=== PATIENT | male | born 1945 | race Caucasian/White ===

== ENCOUNTER 2016-07-20 19:26 | Observation (INO) | payer BC ==
[2016-07-20] MEDS ORDERED: ACETAMINOPHEN 500 MG TAB PO ONE (19:32)
[2016-07-20] MEDS ORDERED: NS 2,000 ML IV ONE (19:43)
--- NOTE | 2016-07-20 19:43 | EDPHY ---
[id number] of breath HISTORY OF PRESENT ILLNESS: this patient is a 70-year-old male, presents emergency room by private vehicle for fever to 102.7 at home. Patient states that he developed cold overnight, began feeling generalized weakness, fatigue, cough, sometimes productive in nature with white sputum. He states he developed chills, rigors, muscle aches, joint pain and generalized weakness prior to arrival. T-max at home 102.7. Does tell me that he had the influenza shot as well as Pneumovax. He denies abdominal pain, chest pain, does endorse some shortness of breath. No urinary symptoms. Past Medical History: BPH, hyperlipidemia Past Surgical History: prostate surgery Social History: lives locally, denies drug use, tobacco use, alcohol Family History: noncontributory ROS REVIEW OF SYSTEMS: A comprehensive 10 point review of systems is otherwise negative aside from elements mentioned in the history of present illness. Exam Constitutional appears well nontoxic triage nursing summary reviewed, vital signs reviewed, awake/alert. ( vital sign reviewed hypotensive at triage, febrile) Eyes normal conjunctivae and sclera, EOMI, PERRLA. HENT normal inspection, atraumatic, moist mucus membranes, no epistaxis, neck supple/ no meningismus, no raccoon eyes. Respiratory clear to auscultation bilaterally, normal breath sounds, no respiratory distress, no wheezing. Cardiovascular rate normal, regular rhythm, no murmur, no edema, distal pulses normal. Gastrointestinal soft, non-tender, no rebound, no guarding, normal bowel sounds, no distension, no pulsatile mass. Genitourinary no CVA tenderness. Musculoskeletal no midline vertebral tenderness, full range of motion, no calf swelling, no tenderness of extremities, no meningismus, good pulses, neurovascularly intact. Skin pink, warm, & dry, no rash, skin atraumatic. Neurologic awake, alert and oriented x 3, AAOx3, moves all 4 extremities equally, motor intact, sensory intact, CN II-XII intact, normal cerebellar, normal vision, normal speech. Psychiatric normal mood/affect. Heme/Lymph/Immune no lymphadenopathy. Differential Diagnosis: includes but is not limited to in a particular order, sepsis, influenza, pneumonia, bacteremia, severe sepsis, dehydration Medical Decision Making: this patient is noted to be hypotensive and febrile at triage he will receive antipyretics, IV fluid bolus 2 L normal saline, will check a lactic acid, blood cultures, chest x-ray two view for pneumonia, blood work, IV fluid bolus and re-evaluate. Blood culture be pulled. Re-evaluation: EKG interpretation by me on record in Recommend system. Impression Time of EKG 1999 to this is sinus rhythm rate of 90, there is atrial premature complex present. No acute ischemia. 2200: This patient is influenza A positive. Do not appreciate a broncho pneumonia on his chest x-ray. Patient is receiving 2 L of fluid. His blood pressures been soft in 80s to 90s. He is feeling better. Fever control with antipyretics. I do feel given the patient's age, soft blood pressures 80s to 90 systolic and will admitted to the hospitalist for observation for hypotension /Influenza A. I did update his daughter at bedside who is a family medicine physician and at bedside patient agrees for admission. Source: Patient - Personal History Current Tetanus/Diphtheria Vaccine: Yes Current Tetanus Diphtheria and Acellular Pertussis (TDAP): Yes - Medical/Surgical History Hx Asthma: No Hx Chronic Respiratory Disease: No Hx Diabetes: No Hx Cardiac Disease: No Hx Renal Disease: No Hx Cirrhosis: No Hx Alcoholism: No Hx HIV/AIDS: No Hx Splenectomy or Spleen Trauma: No Other PMH: hypothyroid, high chol, pne - Social History Smoking Status: Never smoked Constitutional: Initial Vital Signs Temperature (C) 38.7 C H 07/20/16 19:29 Heart Rate 91 07/20/16 19:29 Respiratory Rate 16 07/20/16 19:29 Blood Pressure 92/62 L 07/20/16 19:29 O2 Sat (%) 94 07/20/16 19:29 O2 Delivery Mode Nasal Cannula O2 (L/minute) 2 Allergies/Adverse Reactions: No Known Allergies Allergy (Unverified 07/10/09 13:49) Home Medications: Medication Instructions Recorded Aspirin EC [Aspirin EC 81 mg (*)] 81 mg PO DAILY 07/20/16 Atorvastatin Calcium [Lipitor 10 10 mg PO DAILY 07/20/16 mg (*)] Finasteride [Proscar 5 MG (*)] 10 mg PO DAILY 07/20/16 Levothyroxine [Synthroid 100 mcg 100 mcg PO DAILY06 07/20/16 (*)] Oseltamivir Phosphate [Tamiflu 75 75 mg PO BIDMEAL #8 cap 07/21/16 mg (*)] Medical Decision Making - Data Points Laboratory Results: Laboratory Results 07/20/16 19:55 07/20/16 19:55 Microbiology Results: MICROBIOLOGY 07/20/16 19:44 Blood Blood Culture - Preliminary 07/20/16 20:15 Blood Blood Culture - Preliminary Medications Given: Discontinued Medications Acetaminophen (Tylenol) 1,000 mg PO EDNOW ONE Stop: 07/20/16 19:33 Last Admin: 07/20/16 19:34 Dose: 1,000 mg Acetaminophen (Tylenol) 500 - 1,000 mg PO Q6HRS PRN PRN Reason: Fever over 38.3, or mild pain Stop: 01/16/17 22:41 Last Admin: 07/21/16 06:10 Dose: 1,000 mg Aspirin Buffered (Aspirin Ec) 81 mg PO DAILY ANITA Stop: 01/17/17 08:59 Last Admin: 07/21/16 10:42 Dose: Not Given Atorvastatin Calcium (Lipitor) 10 mg PO DAILY ANITA Stop: 01/17/17 08:59 Last Admin: 07/21/16 10:43 Dose: Not Given Finasteride (Proscar) 10 mg PO DAILY ANITA Stop: 01/17/17 08:59 Last Admin: 07/21/16 10:42 Dose: Not Given Sodium Chloride (Ns) 2,000 mls @ 0 mls/hr IV ONCE ONE PRN Reason: As Directed Stop: 07/20/16 19:44 Last Admin: 07/20/16 20:00 Dose: 2,000 mls Azithromycin 500 mg/ Dextrose 255 mls @ 255 mls/hr IV DAILY ANITA PRN Reason: Protocol Stop: 08/19/16 20:59 Last Admin: 07/20/16 22:12 Dose: 255 mls Ceftriaxone Sodium/Dextrose (Rocephin 1 Gm (Premix)) 50 mls @ 100 mls/hr IV EDNOW ONE PRN Reason: Protocol Stop: 07/20/16 21:11 Last Admin: 07/20/16 21:00 Dose: 50 mls Sodium Chloride (Ns) 1,000 mls @ 0 mls/hr IV ONCE ONE PRN Reason: Wide Open Stop: 07/20/16 22:07 Last Admin: 07/20/16 22:20 Dose: 1,000 mls Ibuprofen (Motrin) 800 mg PO EDNOW ONE Stop: 07/20/16 20:24 Last Admin: 07/20/16 20:30 Dose: 800 mg Levothyroxine Sodium (Synthroid) 100 mcg PO DAILY06 [facility] Stop: 01/17/17 05:59 Last Admin: 07/21/16 06:10 Dose: 100 mcg Ondansetron HCl (Zofran) 4 mg IVP EDNOW ONE Stop: 07/20/16 20:08 Last Admin: 07/20/16 20:08 Dose: 4 mg Oseltamivir Phosphate (Tamiflu) 75 mg PO EDNOW ONE Stop: 07/20/16 22:07 Last Admin: 07/20/16 22:20 Dose: 75 mg Oseltamivir Phosphate (Tamiflu) 75 mg PO BIDMEAL [facility] Stop: 07/25/16 18:01 Last Admin: 07/21/16 10:41 Dose: 75 mg Departure - Departure Disposition: [facility] Acute Clinical Impression: Influenza A, Hypotension Condition: Fair
[2016-07-20] MEDS ORDERED: ONDANSETRON 4 MG/2 ML VIAL ONE (20:01)
--- NOTE | 2016-07-20 20:04 | CPEKG ---
Heart Rate: 90 RR Interval: 667 P-R Interval: 156 QRSD Interval: 78 QT Interval: 344 QTC Interval: 421 P [place]: 24 QRS [place]: 29 T Wave [place]: 72 EKG Severity - ABNORMAL ECG - EKG Impression: SINUS RHYTHM EKG Impression: MULTIPLE ATRIAL PREMATURE COMPLEXES Electronically Signed By: Martínez Gibbs 20-Jul-2016 21:18:04
[2016-07-20] MEDS ORDERED: ONDANSETRON 4 MG/2 ML VIAL IVP ONE (20:07)
[2016-07-20] MEDS ORDERED: IBUPROFEN 200 MG TAB PO ONE (20:23)
[2016-07-20 20:36] LABS: % IMMATURE GRANULYOCYTES 0.2 % (0.0-1.1); ABSOLUTE IMMATURE GRANULOCYTES 0.02 10^3/uL (0.00-0.10); ADD DIFF? NO; ADD MORPH? NO; ADD SCAN? NO; ATYPICAL LYMPHOCYTE FLAG 10 (0-99); FRAGMENT RBC FLAG 0 (0-99); HEMATOCRIT 45.5 % (40.0-51.0); HEMOGLOBIN 16.2 g/dL (13.7-17.5); LEFT SHIFT FLG 0 (0-99); LIPEMIA HEMOLYSIS FLAG 90 (0-99); MEAN CELL HEMOGLOBIN 31.3 pg (27.9-34.1); MEAN CELL HEMOGLOBIN CONCENTR. 35.6 g/dL (32.4-36.7); MEAN PLATELET VOLUME 11.6 fL (8.7-11.7); PLATELET CLUMPS FLAG 0 (0-99); PLATELET COUNT 118 10^3/uL (150-400); RED BLOOD CELL COUNT 5.17 10^6/uL (4.40-6.38); RED CELL DISTRIBUTION WIDTH 13.4 % (11.5-15.2)
[2016-07-20 20:47] LABS: INR 1.15 (0.83-1.16); PROTIME(PATIENT) 14.6 SEC (12.0-15.0)
[2016-07-20 20:48] LABS: APTT 30.9 SEC (23.0-38.0)
[2016-07-20 20:55] LABS: ALANINE AMINOTRANSFERASE 54 IU/L (21-72); ALKALINE PHOSPHATASE 75 IU/L (38-126); ANION GAP 12 mEq/L (8-16); ASPARTATE AMINOTRANSFERASE 36 IU/L (17-59); BILIRUBIN,TOTAL 0.7 mg/dL (0.1-1.4); BILIRUBIN-CONJUGATED 0.2 mg/dL (0.0-0.5); BILIRUBIN-UNCONJUGATED 0.5 mg/dL (0.0-1.1); CALCIUM 9.2 mg/dL (8.5-10.4); CARBON DIOXIDE 21 mEq/l (22-31); CHLORIDE 103 mEq/L (97-110); CREATININE 1.3 mg/dL (0.7-1.3); GLOMERULAR FILTRATION RATE 54; GLUCOSE 118 mg/dL (70-100); MAGNESIUM 1.8 mg/dL (1.6-2.3); POTASSIUM 4.4 mEq/L (3.5-5.2); SODIUM 136 mEq/L (134-144); TOTAL PROTEIN 6.7 g/dL (6.3-8.2)
[2016-07-20] MEDS ORDERED: AZITHROMYCIN IV 500 MG in D5W 250 ML IV SCH (21:00)
[2016-07-20 21:07] LABS: CREATINE KINASE-MB FRACTION 0.27 ng/mL (0-3.19); TROPONIN I < 0.012 ng/mL (0-0.034)
[2016-07-20] MEDS ORDERED: NS 1,000 ML IV ONE (22:06)
[2016-07-20] MEDS ORDERED: OSELTAMIVIR PHOSPHATE 75 MG CAP PO ONE (22:06)
[2016-07-20] MEDS ORDERED: OSELTAMIVIR PHOSPHATE 75 MG CAP ONE (22:19)
[2016-07-20] MEDS ORDERED: ONDANSETRON DISINTEGRATING 4 MG TAB PO PRN (22:42)
[2016-07-20] MEDS ORDERED: HYDROCODONE/APAP 5/325 TAB PO PRN (22:42)
[2016-07-20] MEDS ORDERED: ACETAMINOPHEN 500 MG TAB PO PRN (22:42)
[2016-07-20] MEDS ORDERED: ONDANSETRON 4 MG/2 ML VIAL IVP PRN (22:42)
[2016-07-20] MEDS ORDERED: NS 1,000 ML IV SCH (22:45)
--- NOTE | 2016-07-20 22:46 | DX ---
PA and Lateral Chest X-Ray 2004 hours History: Chest pain with cough and fever. Findings: Heart size and pulmonary vasculature are normal. There is mild peribronchial cuffing seen in the perihilar region and prominence of perihilar interstitial markings. There are no peripheral i nfiltrates or effusions. Osseous structures are intact. Impression: Mild prominence of perihilar interstitial markings and peribronchial cuffing. Findings ar e nonspecific but can be seen with bronchitis, reactive airway disease, or viral process.
--- NOTE | 2016-07-21 00:01 | PDGENHP ---
History and Physical - Chief Complaint myalgias, malaise - History of Present Illness Patient is a 70-year-old male with history of hypothyroidism, BPH and hyperlipidemia presents to the ED with complaint generalized malaise. Pt states the day prior to presentation he was feeling well until just prior to going to bed. He noticed a feeling of malaise/fatigue. The following day he reports persistent malaise, but was able to eat breakfast/lunch; shortly after lunch he reports feeling intense chills, myalgias and overall discomfort. By the late afternoon he had a measured fever to 102F. His daughter, who is a physician, advised him to try Azithromycin to treat his symptoms, so he took 1 tab of that prior to arrival. Pt continued to feel progressively worse and began to feel dizzy, prompting him to come to the ED. He denied any cough, CANAS, n/v/d or dysuria. He does report recent travel to [place] for a family gathering, where several family members were sick with "flu-like" symptoms. Upon arrival to the ED, patient was febrile, tachycardic and mildly hypotensive. Labs revealed mild leukocytosis, normal lactic acid. CXR did not reveal any acute infiltrate. He was cultured and started on empiric antibiotics. Rapid flu swab then resulted positive for influenza A. Pt was initiated on tamiflu and then admitted to the hospitalist service for further management. History Information - Allergies/Home Medication List Allergies/Adverse Reactions: No Known Allergies Allergy (Unverified 07/10/09 13:49) Home Medications: Aspirin EC [Aspirin EC 81 mg (*)] 81 mg PO DAILY 07/20/16 [Last Taken 07/20/16] Atorvastatin Calcium [Lipitor 10 mg (*)] 10 mg PO DAILY 07/20/16 [Last Taken 09/04] Finasteride [Proscar 5 MG (*)] 10 mg PO DAILY 07/20/16 [Last Taken 07/20/16] Levothyroxine [Synthroid 100 mcg (*)] 100 mcg PO DAILY06 07/20/16 [Last Taken ] I have personally reviewed and updated: family history, medical history, social history, surgical history - Past Medical History Additional medical history: Hypothyroidism. HLD. 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 Lives with , is independent in all ADLs. Has two children who are physicians. Review of Systems ROS: 10pt was reviewed & negative except for what was stated in HPI & below Physical Exam Temp Pulse Resp BP Pulse Ox 37.2 C 71 20 96/49 L 96 07/20/16 23:02 07/20/16 23:02 07/20/16 23:02 07/20/16 23:02 07/20/16 23:02 O2 (L/minute) 2 Constitutional: no apparent distress, appears nourished, not in pain Eyes: PERRL, anicteric sclera, EOMI Ears, Nose, Mouth, Throat: moist mucous membranes, hearing normal, ears appear normal, no oral mucosal ulcers Cardiovascular: regular rate and rhythym, no murmur, rub, or gallop, pulses symmetric bilaterally, No JVD, No edema Peripheral Pulses: 2+: dorsalis-pedis (R), dorsalis-pedis (L) Respiratory: no respiratory distress, no rales or rhonchi, clear to auscultation Gastrointestinal: normoactive bowel sounds, soft, non-tender abdomen, no palpable masses Genitourinary: no bladder fullness, no bladder tenderness Skin: warm, normal color, no rashes or abrasions, no fluctuance, No mottled Musculoskeletal: full muscle strength, no muscle tenderness, normal joint ROM, no joint effusions Neurologic: AAOx3, sensation intact bilaterally, CN II-XII Intact, No weakness, No numbness Psychiatric: interacting appropriately, not anxious, not encephalopathic, thought process linear Lab Data & Imaging Review 07/20/16 19:55 07/20/16 19:55 WBC 9.61 10^3/uL (3.80-9.50) H 07/20/16 19:55 RBC 5.17 10^6/uL (4.40-6.38) 07/20/16 19:55 Hgb 16.2 g/dL (13.7-17.5) 07/20/16 19:55 Hct 45.5 % (40.0-51.0) 07/20/16 19:55 MCV 88.0 fL (81.5-99.8) 07/20/16 19:55 MCH 31.3 pg (27.9-34.1) 07/20/16 19:55 MCHC 35.6 g/dL (32.4-36.7) 07/20/16 19:55 RDW 13.4 % (11.5-15.2) 07/20/16 19:55 Plt Count 118 10^3/uL (150-400) L 07/20/16 19:55 MPV 11.6 fL (8.7-11.7) 07/20/16 19:55 Neut % (Auto) 79.0 % (39.3-74.2) H 07/20/16 19:55 Lymph % (Auto) 13.2 % (15.0-45.0) L 07/20/16 19:55 [place] % (Auto) 6.9 % (4.5-13.0) 07/20/16 19:55 Eos % (Auto) 0.2 % (0.6-7.6) L 07/20/16 19:55 Baso % (Auto) 0.5 % (0.3-1.7) 07/20/16 19:55 Nucleat RBC Rel Count 0.0 % (0.0-0.2) 07/20/16 19:55 Absolute Neuts (auto) 7.59 10^3/uL (1.70-6.50) H 07/20/16 19:55 Absolute Lymphs (auto) 1.27 10^3/uL (1.00-3.00) 07/20/16 19:55 Absolute Monos (auto) 0.66 10^3/uL (0.30-0.80) 07/20/16 19:55 Absolute Eos (auto) 0.02 10^3/uL (0.03-0.40) L 07/20/16 19:55 Absolute Basos (auto) 0.05 10^3/uL (0.02-0.10) 07/20/16 19:55 Absolute Nucleated RBC 0.00 10^3/uL (0-0.01) 07/20/16 19:55 Immature Gran % 0.2 % (0.0-1.1) 07/20/16 19:55 Immature Gran # 0.02 10^3/uL (0.00-0.10) 07/20/16 19:55 PT 14.6 SEC (12.0-15.0) 07/20/16 19:55 INR 1.15 (0.83-1.16) 07/20/16 19:55 APTT 30.9 SEC (23.0-38.0) 07/20/16 19:55 VBG Lactic Acid 1.8 mmol/L (0.7-2.1) 07/20/16 20:10 Sodium 136 mEq/L (134-144) 07/20/16 19:55 Potassium 4.4 mEq/L (3.5-5.2) 07/20/16 19:55 Chloride 103 mEq/L (97-110) 07/20/16 19:55 Carbon Dioxide 21 mEq/l (22-31) L 07/20/16 19:55 Anion Gap 12 mEq/L (8-16) 07/20/16 19:55 BUN 18 mg/dL (7-23) 07/20/16 19:55 Creatinine 1.3 mg/dL (0.7-1.3) 07/20/16 19:55 Estimated GFR 54 07/20/16 19:55 Glucose 118 mg/dL (70-100) H 07/20/16 19:55 Calcium 9.2 mg/dL (8.5-10.4) 07/20/16 19:55 Magnesium 1.8 mg/dL (1.6-2.3) 07/20/16 19:55 Total Bilirubin 0.7 mg/dL (0.1-1.4) 07/20/16 19:55 Conjugated Bilirubin 0.2 mg/dL (0.0-0.5) 07/20/16 19:55 Unconjugated Bilirubin 0.5 mg/dL (0.0-1.1) 07/20/16 19:55 AST 36 IU/L (17-59) 07/20/16 19:55 ALT 54 IU/L (21-72) 07/20/16 19:55 Alkaline Phosphatase 75 IU/L (38-126) 07/20/16 19:55 Creatine Kinase 74 IU/L (0-224) 07/20/16 19:55 CK-MB (CK-2) Fraction 0.27 ng/mL (0-3.19) 07/20/16 19:55 Troponin I < 0.012 ng/mL (0-0.034) 07/20/16 19:55 Total Protein 6.7 g/dL (6.3-8.2) 07/20/16 19:55 Albumin 4.0 g/dL (3.5-5.0) 07/20/16 19:55 Lipase 44.0 IU/L (23-300) 07/20/16 19:55 Influenza Typ A,B (DFA) POSITIVE FOR FLU A (NEGATIVE) H 07/20/16 19:55 Visualized and Interpreted Chest x-ray results: Yes Chest X-Ray results: no infiltrate, normal Visualized and Interpreted EKG results: Yes EKG additional interpertation: NSR with PACs, no st/t wave changes Assessment & Plan Assessment: Pt is 70/M with HLD, BPH and hypothyroidism who presents to the ED with 24 hours of generalized malaise, myalgias and fever, found to be influenza A positive. Plan: # sepsis secondary to acute influenza A infection Pt with leukocytosis, tachycardia and hypotension, consistent with severe sepsis , due to acute influenza A infection. Pt has presented within 24 hours of symptoms onset, so tamiflu has been initiated. - f/u blood cultures, UA - droplet precautions - tamiflu 75 mg bid x 10 days - IVF hydration: NS @ 100cc/hr - symptomatic treatment: zofran, tylenol, nsaid prn # chronic hypothyroidism Cont home synthroid # BPH Cont finasteride. # dispo: observe in [facility] # full code
[2016-07-21 00:11] VITALS: RESP 16
[2016-07-21 04:02] VITALS: O2SAT 93
[2016-07-21] MEDS ORDERED: LEVOTHYROXINE 100 MCG TAB PO SCH (06:00)
[2016-07-21 06:11] LABS: % IMMATURE GRANULYOCYTES 0.3 % (0.0-1.1); ABSOLUTE IMMATURE GRANULOCYTES 0.02 10^3/uL (0.00-0.10); ADD DIFF? NO; ADD MORPH? NO; ADD SCAN? NO; ATYPICAL LYMPHOCYTE FLAG 20 (0-99); FRAGMENT RBC FLAG 0 (0-99); HEMATOCRIT 39.8 % (40.0-51.0); HEMOGLOBIN 13.8 g/dL (13.7-17.5); LEFT SHIFT FLG 0 (0-99); LIPEMIA HEMOLYSIS FLAG 90 (0-99); MEAN CELL HEMOGLOBIN 30.8 pg (27.9-34.1); MEAN CELL HEMOGLOBIN CONCENTR. 34.7 g/dL (32.4-36.7); MEAN CELL VOLUME 88.8 fL (81.5-99.8); MEAN PLATELET VOLUME 12.1 fL (8.7-11.7); PLATELET CLUMPS FLAG 10 (0-99); PLATELET COUNT 100 10^3/uL (150-400); RED BLOOD CELL COUNT 4.48 10^6/uL (4.40-6.38); RED CELL DISTRIBUTION WIDTH 13.9 % (11.5-15.2)
[2016-07-21 06:28] LABS: ANION GAP 8 mEq/L (8-16); CALCIUM 7.8 mg/dL (8.5-10.4); CARBON DIOXIDE 24 mEq/l (22-31); CHLORIDE 107 mEq/L (97-110); CREATININE 1.4 mg/dL (0.7-1.3); GLOMERULAR FILTRATION RATE 50; GLUCOSE 99 mg/dL (70-100); POTASSIUM 4.3 mEq/L (3.5-5.2); SODIUM 139 mEq/L (134-144)
[2016-07-21 07:58] VITALS: BP 91/48; PULSE 66; TEMP 98.3
[2016-07-21] MEDS ORDERED: OSELTAMIVIR PHOSPHATE 75 MG CAP PO SCH (08:00)
[2016-07-21] MEDS ORDERED: ATORVASTATIN CALCIUM 10 MG TAB PO SCH (09:00)
[2016-07-21] MEDS ORDERED: ASPIRIN EC 81 MG TAB PO SCH (09:00)
[2016-07-21] MEDS ORDERED: FINASTERIDE 5 MG TAB PO SCH (09:00)
--- NOTE | 2016-07-21 14:36 | GDS ---
[f rep st] DISCHARGE SUMMARY DISCHARGE DIAGNOSES: 1. Influenza A. 2. Systemic inflammatory response syndrome/sepsis due to above. 3. Hypothyroidism. OBSERVATION COURSE AND STAY BY PROBLEM: Influenza A: The patient was admitted to the hospital due t o concerns for sepsis. The patient was noted to be hypotensive on initial presentation, and continue d to be mildly hypotensive throughout his stay. However, he is completely asymptomatic. He tells me that his systolic blood pressures typically in the low 100s. On day of discharge, he is afebrile. He denies any chest pain or shortness of breath and would like to go home. PHYSICAL EXAM: VITAL SIGNS: On day of discharge, blood pressure 91/48, pulse 66, respiratory rate 1 6, O2 saturation 93% on room air. Temperature afebrile. GENERAL: No acute distress. HEART: S1, S 2. LUNGS: Clear. ABDOMEN: Soft, nontender, nondistended. No guarding or rebound tenderness. Nor moactive bowel sounds. PERTINENT LABS AND STUDIES DONE THIS HOSPITAL STAY: Chest x-ray done 07/20/2016, was reviewed. DISCHARGE MEDICATIONS: Please refer to discharge medication reconciliation in [facility] for details. Below is a preliminary list. New medications on hospital discharge, Tamiflu 75 mg p.o. b.i.d. to complete 10 days of treatment. DISCHARGE INSTRUCTIONS: The patient was discharged home, and was instructed to seek medical attentio n if his symptoms worsen. /[id number]/MODL
== END 2016-07-21 12:00 | disposition home or self-care (01) ==
LOC: F1N 23:06
PROVIDERS: ADMIT Internal Medicine; ATTEND Internal Medicine
DX: J09.X2 Influenza due to identified novel influenza A virus with other respiratory manifestations (principal); A41.9 Sepsis, unspecified organism; R65.10 Systemic inflammatory response syndrome (SIRS) of non-infectious origin without acute organ dysfunction; E03.9 Hypothyroidism, unspecified; N40.0 Benign prostatic hyperplasia without lower urinary tract symptoms; E78.5 Hyperlipidemia, unspecified; I95.9 Hypotension, unspecified; Z82.49 Family history of ischemic heart disease and other diseases of the circulatory system
CPT/HCPCS: 71020; 93005; G0378; J0456; J0696; J2405